=== PATIENT | female | born 1970 | race Caucasian/White ===

== ENCOUNTER 2017-04-22 12:51 | Day surgery (SDC) | payer OTHER ==
[2017-04-22] VITALS (8 sets, daily range): BP systolic 102–148; BP diastolic 47–73; PULSE 67–100; RESP 12–16; O2SAT 94–99
[~2017-04-22] VITALS: Ht 152.4 cm; Wt 82.0 kg
[2017-04-22] MEDS ORDERED: fentaNYL-PF 50 mCg/mL 2 mL Inj ONE (12:52)
[2017-04-22] MEDS ORDERED: Ondansetron 2 mg/mL 2 mL Inj ONE (12:52)
[2017-04-22] MEDS ORDERED: Glycopyrrolate 0.2 MG/ML 1mL Inj ONE (12:52)
[2017-04-22] MEDS ORDERED: Neostigmine 1 mg/mL 10 mL Inj ONE (12:52)
[2017-04-22] MEDS ORDERED: Succinylcholine Chloride 20 mg/mL 5 mL Inj ONE (12:52)
[2017-04-22] MEDS ORDERED: Propofol 10,000 mCg/mL 20 mL Inj ONE (12:52)
[2017-04-22] MEDS ORDERED: Dexamethasone 4 mg/mL Inj ONE (12:52)
[2017-04-22] MEDS ORDERED: Lactated Ringer's 1,000 ML IV ONE ×4 (13:43→15:44)
[2017-04-22] MEDS ORDERED: LEVO50TA6 PO (13:45)
--- NOTE | 2017-04-22 15:42 | PCM.HPANE ---
Patient Data Surgeon Admitting Provider: Attending Provider:Harjit Boothe MD Primary Care Physician:Kaila Sandra MD Other Provider:Paula Edwardsingham Anesthesia Reason for Visit Gallstones Ht/WT & BMI Height (Feet): 5 Height (Inches): 0.00 Weight (Kilograms): 82.000 Body Mass Index 35.00 Allergies Coded Allergies: No Known Allergies (Unverified , 04/22/17) Past Anesthesia History Anesthesia History: Denies:: Abnormal Airway, Anesthesia Reactions, Fam Anesthesia Reaction, Fam Malignant Hypertherm, Malignant Hyperthermia Diabetes History Hx Diabetes?: No MRSA MRSA: No Medications Hypertension Medication: No Home Meds Incl Beta Johny: No Reported Medications Levothyroxine 50 Mcg [id number] Mcg PO DAILY #30 04/22/17 History History of ENT Problems?: No HEENT History: Denies:: Abnormal Airway Dysphagia Hearing Problem TMJ Denture Type: None Teeth Condition: Within Normal Limits Hx of Heart Problems?: No Cardiovascular History: Denies:: Atrial Fibrillation Cardiac Surgery Chest Pain Heart Murmur Hypertension Pacemaker Hx of Respiratory Problem?: No Respiratory History: Denies:: Asthma COPD Emphysema Tuberculosis Use of C-PAP Machine Hx Neurologic Problems?: No Neurological History: Denies:: CVA Dizziness Headaches Multiple Sclerosis Parkinson's Disease Seizures TIA Hx of GI Problems?: Yes Hx of Problems?: No Female Hx: Denies:: Currently (NEG TEST) Problems with Breasts? Skin History: Denies:: History Skin Disorders? Hx Musculoskeletal Problems?: No Musculoskeletal History: Denies:: Back Injury Fibromyalgia Osteoarthritis Hx of Psycho/Social Problems?: No Psycho Social History: Denies:: Anxiety Bipolar Disorder Hx Depression Hx Surgeries?: Yes (TONSILLECTOMY) Hx Any Other Health Problems?: No Other History: Positive for:: Endocrine Disease Thyroid Disease (HYPO) Denies:: Cancer Hospitalization History Blood Transfusions: Positive for:: Accept Blood Products? Hx Diabetes: No Hx Alcohol Use: Yes (ONE GLASS OF WINE A MONTH)Hx Substance Use: No Stop/Bang S-Snoring: Do You Snore Loudly: Yes T-Tired: feel tired, fatigued: No O-Obsered: Observed not breath: No P-Blood Pressure: treated: No B- Body Mass Index > 35 kg/m2: No A- Age over 50: No N- Neck Large Circumference: No G- Gender Male: No FRANK Total Score: 1 FRANK Risk Assessment: Low Risk, <3 Yes Risk Assessment Category Category 1A: Patient has history of documented sleep apnea, and HAS NOT received any narcotic, sedative or anesthesia administration during this stay. Category 1B: Patient has history of documented sleep apnea, and HAS received any narcotic , sedative or anesthesia administration during this stay Category 2: Patient has SUSPECTED Obstructive Sleep Apnea, and HAS received any narcotic , sedative or anesthesia administration during this stay. Category 3: Patient has SUSPECTED Obstructive Sleep Apnea and HAS NOT received narcotic, sedative or anesthesia administration during this stay. Category 4: Outpatient in Procedural Areas with known sleep apnea or who screen positive for High Risk via the STOP/BANG questionnaire. Exam Exam Vital Signs Vital Signs Date Time Temp Pulse Resp B/P Pulse Ox O2 Delivery O2 Flow Rate FiO2 04/22/17 13:39 36.6 69 16 102/47 99 Room Air General Appearance: Alert, Oriented X3, Cooperative, No Acute Distress HEENT/AIRWAY: MP 2 Lungs: Clear to Auscultation, Normal Air Movement Heart: Exam Unremarkable, Regular Rate/Rhythm, No Murmurs/Rubs/Gallops Meds/Labs/Diagnostics Admission Meds Current Medications Lactated Ringer's (Lr) 1,000 ml @ ud STK-MED ONCE IV Last administered on t 13:43; Start 04/22/17 at 13:43; Stop 04/22/17 at 13:44; Status DC Plan Impression Patient chart reviewed, patient interviewed and anesthestic plan with risks, benefits, and alternatives discussed, and informed consent obtained. NPO per Anesth. Guidelines: Yes ASA Physical Status: ASA2 Mod Systemic Disease Anesthetic Plan: GA Bene/Risks/Altern/Consents: Yes HP Complete Prior to Induction: Yes Jennifer Gary MD Apr 22, 2017 15:41
[2017-04-22] MEDS ORDERED: CeFAZolin Inj 2 GM in IV Premix 1 EACH IV ONE (16:10)
[2017-04-22] MEDS ORDERED: Bupivacaine-MPF 0.5% W/EPI 30 mL Inj INFILTRATE ONE (16:39)
[2017-04-22] MEDS ORDERED: Lactated Ringer's 1,000 ML IV SCH (17:32)
[2017-04-22] MEDS ORDERED: Lactated Ringer's 500 ML IV PRN (17:32)
[2017-04-22] MEDS ORDERED: HYDROmorphone 1 mg/mL Inj IVPUSH PRN (17:35)
[2017-04-22] MEDS ORDERED: Phenylephrine 10,000 mCg/mL Inj IVPUSH PRN (17:35)
[2017-04-22] MEDS ORDERED: fentaNYL-PF 50 mCg/mL 2 mL Inj IVPUSH PRN (17:35)
[2017-04-22] MEDS ORDERED: EPHEDrine Sulfate 50 mg/mL Inj IVPUSH PRN (17:35)
[2017-04-22] MEDS ORDERED: Ondansetron 2 mg/mL 2 mL Inj IVPUSH PRN (17:35)
[2017-04-22] MEDS ORDERED: Dexamethasone 4 mg/mL Inj IVPUSH PRN (17:35)
[2017-04-22] MEDS ORDERED: MetoCLOpramide 5 mg/mL 2 mL Inj IVPUSH PRN (17:35)
[2017-04-22] MEDS ORDERED: Atropine 0.4 mg/mL Inj IVPUSH PRN (17:35)
[2017-04-22] MEDS ORDERED: Labetalol 5 mg/mL 4 mL Inj IV PRN (17:35)
--- NOTE | 2017-04-22 17:39 | PCM.DISURG ---
Surgical Discharge Instruction Date of Service Apr 22, 2017 Dates of Hospitalization Date of Hospital Admission Providers Admitting Physician: Primary Care Physician: Kaila Sandra MD Attending Physician: Harjit Boothe MD Discharge Diagnosis Discharge Diagnosis Biliary colic, possible choledochal cyst Diet Discharge Diet: Low fat Activity Discharge Activity-General: No lifting >15 pounds for 2 weeks Dressing and Incisional Care Dressing Care: Allow Steri Stripes to fall off, Remove outer dressing after 24 hrs Hygiene: May shower after (24 hours) Follow Up Plan Follow Up Plan With Dr. Boothe after trip to [place] Call your provider for: Fever (over 101.5), Vomiting, Discharge @ incision, pus discharge Harjit Boothe MD Apr 22, 2017 17:39
--- NOTE | 2017-04-22 17:45 | PCM.SURGOP ---
Surgical Operative Report Date of Service: Apr 22, 2017 Pre Operative Diagnosis Biliary colic Post Operative Diagnosis Same, possible choledochal cyst Procedure: Laparoscopic cholecystectomy Surgeon and Pearl Restorer: Surgeon: Harjit Boothe MD Assistants: Aster Peña Indication for Procedure 47-year-old woman who presented to the emergency department at [facility] with a severe episode of upper abdominal pain, associated with mild nausea. She had normal labs including normal liver function tests. An ultrasound showed multiple mobile gallstones, but no gallbladder wall thickening, no pericholecystic fluid. Reportedly, the common bile duct measured 3 mm. After discussion of risks and benefits, she agreed to proceed with laparoscopic cholecystectomy. She has an upcoming trip to [place], scheduled to leave this coming Tuesday, so she wanted to have cholecystectomy prior to her trip to avoid trouble while out of the country. Findings: The cystic duct was massively dilated down to the common bile duct. A normal caliber common bile duct could not be visualized, and I suspect she may have a choledochal cyst. There was a large gallstone. A cholangiogram could not be obtained, because the cystic duct was so large that it could not be occluded. The cystic duct was controlled with PDS Endoloops 2. Procedure Details After smooth induction of general endotracheal anesthesia, the patient was placed in the supine position with the right arm tucked. A procedural pause was performed according to the SCOAP checklist, and all were found to be in agreement. A curvilinear infraumbilical incision was made. Dissection was carried down with electrocautery until the midline fascia was incised vertically, and the peritoneal cavity entered without difficulty. Pneumoperitoneum was established. Inspection revealed some inflammatory adhesions to the fundus of the gallbladder. 3 additional ports were placed under direct visualization. One was placed in the midline epigastrium, and 2 in the right subcostal region. Adhesions were taken down from the gallbladder fundus with electrocautery. The fundus of the gallbladder was then grasped and retracted cephalad. The infundibulum of the gallbladder was grasped. There was a phrygian cap at the fundus, so efforts were made not to grasp the true fundus of the gallbladder. The peritoneum was incised. The cystic artery was cauterized and divided. The cystic duct was very large in caliber, which was large right down to the common bile duct, which also appeared large in caliber. The critical view was obtained using the infundibular technique. The cystic duct was too large to be able to occlude to get a cholangiogram, so a cholangiogram was not obtained. Once the critical view was obtained, the remainder of the gallbladder was dissected out of the gallbladder fossa with electrocautery. The cystic duct was then controlled with a total of 3 PDS Endoloops. 2 Endoloops were placed on the common bile duct side, one Endoloop was placed on the gallbladder side. The loops were passed around the entire gallbladder down to the cystic duct, and the cystic duct was divided with scissors. The gallbladder was placed into an Endo Catch bag and removed from the umbilical port site. The gallbladder was opened on the back table, revealing a large gallstone, and a fairly benign- appearing polyp versus phrygian cap at the fundus. It was passed off the field and sent for permanent pathology. The gallbladder fossa was inspected and irrigated. Hemostasis was adequate, and there was no bile leak. The ports were removed under direct visualization and pneumoperitoneum was released. The fascia of the umbilical port site was closed using an 0 Vicryl suture in a [id number]. The skin incisions were closed using running 4-0 Monocryl subcuticular stitches. Steri-Strips and sterile dressings were applied. At the end of the case all needle and sponge counts were correct 2. The patient was awakened from anesthesia without difficulty, and taken to the recovery room in satisfactory condition, having tolerated the procedure well. Complications There were no periprocedural complications identified. Surgical Specimen Removed: Yes Specimen sent to Pathology: Yes Surgical Specimen description: Gallbladder Anesthetic Plan: GA Grafts, Implants: None Output, Estimated Blood Loss: 50 Blood Administration during diane: No Drains: None Catheters: None copies to: Kaila Sandra MD, Joshua D MD Apr 22, 2017 17:45
--- NOTE | 2017-04-22 17:53 | PCM.ANEP1 ---
Post Anesthesia PACU Phase 1 Assessment Vital Signs Vital Signs Date Time Temp Pulse Resp B/P Pulse Ox O2 Delivery O2 Flow Rate FiO2 04/22/17 13:39 36.6 69 16 102/47 99 Room Air Anesthetic Administered: GA Level of Alertness: Awake, talking STANLEY's with Equal Strength: Yes Pain: No Nausea or Vomiting: No CV Function & Hydration Stable: Yes Airway Device: Oxygen Delivery: Simple Mask Lungs: Clear to Auscultation, Normal Air Movement PACU Phase 2 Assessment Complications: No Follow up Care: No Patient Instructions Provided: N/A Jennifer Gary MD Apr 22, 2017 17:53
--- NOTE | 2017-04-25 14:38 | PATH ---
SURGICAL PATHOLOGY Attending Physician:Alvina Pete CASE STATUS: Signed Out PATIENT NAME: KEARA CARMONA PID: [id number] : 1970 DATE COLLECTED:04/22/2017 00:00 SPECIMEN: Gallbladder CLINICAL HISTORY: BILIARY COLIC 1). GALLBLADDER FINAL DIAGNOSIS: 1.GALLBLADDER: CHOLELITHIASIS WITH ASSOCIATED CHRONIC CHOLECYSTITIS. ICD10 K80.66 GROSS DESCRIPTION: The specimen is received in one formalin filled container labeled with the patient's name, sublabeled "gallbladder" and consists of an opened 5.5 x 2.0 x 1.0 CM gallbladder. The cystic duct is not identified. The serosa is smooth. The wall is 0.2-0.3 CM in thickness. The mucosa is a dark pink-ambriz in color. The lumen contains a dark green rough calculus which measures 2.0 x 1.7 x 1.7 CM. 5 employment program representative sections are submitted in one cassette. 04/23/2017 DAC MICRO DESCRIPTION: See diagnosis. ICD-9 CODES: CPT CODES: 1: 84880 Electronically Signed Out Gurjit Benavidez MD [facility] Pathology [facility] [address], [place] [address] Technical component performed at [facility], [address] [place] [address] Ave[address], [place], [address]
== END 2017-04-22 23:59 | disposition home or self-care (01) ==
LOC: SAS 12:51
PROVIDERS: ATTEND Student in an Organized Health Care Education/Training Program
DX: K80.10 Calculus of gallbladder with chronic cholecystitis without obstruction (principal); E03.9 Hypothyroidism, unspecified
CPT/HCPCS: 47562; J0330; J0690; J1100; J2250; J2405; J2710; J2765; J3010; J7120